=== PATIENT | male | born 1970 | race Two or more races ===

== ENCOUNTER 2018-03-16 10:25 | Emergency (ER) | payer MEDICAID ==
[~2018-03-16] VITALS: Ht 170.2 cm; Wt 90.7 kg
[2018-03-16] MEDS ORDERED: Tetanus/Diptheria/Pertussis Vaccine 0.5ml Syr IM ONE (11:00)
--- NOTE | 2018-03-16 11:52 | Diagnostic Imaging Report ---
Indication: Trauma Technique: Continuous helical CT scanning of the head was performed utilizing automated exposure control without intravenous contrast material. Axial and coronal reconstructions were obtained. Comparison: None CT dose: Total DLP 1998.38 mGycm; CTDI vol 70.38,28.19 mGy Findings: There is no acute intracranial hemorrhage, mass effect or cortical edema. The ventricles, cisterns and sulci are within normal limits for age. Visualized mastoid air cells are clear. There is mucosal thickening within the paranasal sinuses. There is frontal and left periorbital soft tissue swelling. There is no depressed calvarial fracture. IMPRESSION: No evidence of acute intracranial hemorrhage, mass effect or cortical edema. Until left periorbital soft tissue swelling. No depressed calvarial fracture. Mild paranasal sinus disease. The CT scanner at [facility] is accredited by the [employer] and the scans are performed using protocols designed to limit radiation exposure to as low as reasonably achievable to attain images of sufficient resolution adequate for diagnostic evaluation.
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
--- NOTE | 2018-03-16 12:00 | Diagnostic Imaging Report ---
Indication: Trauma Technique: CT maxillofacial was performed utilizing automated exposure control without intravenous contrast material. Axial and coronal images were generated. CT dose: Total DLP 1998.38 mGycm; CTDI vol 70.38,28.19 mGy Comparison: None Findings: Acute, minimally displaced fracture of the left nasal bone. Possible nondisplaced fracture of the right nasal bone. There is overlying soft tissue swelling. The nasal septum is midline. There is mild to moderate paranasal sinus disease with mucosal thickening involving ethmoid air cells and bilateral maxillary sinuses with a retention cyst versus polyp in the left maxillary sinus. The bony orbits are intact. Globes are symmetric. There is frontal and left periorbital soft tissue swelling. Conal fat of the bilateral orbits without evidence of infiltration. Extraocular muscles symmetric bilaterally. Visualized cervical spine grossly unremarkable. IMPRESSION: * Acute, mildly displaced fracture of the left nasal bone. Likely nondisplaced fracture of the right nasal bone. Overlying soft tissue swelling. * Frontal and left periorbital soft tissue swelling. * Paranasal sinus disease. The CT scanner at [facility] is accredited by the [employer] and the scans are performed using protocols designed to limit radiation exposure to as low as reasonably achievable to attain images of sufficient resolution adequate for diagnostic evaluation.
[2018-03-16] MEDS ORDERED: Lidocaine 1% MPF 10mg/ml 5ml INJ ONE (12:30)
[2018-03-16] MEDS ORDERED: CEPHALEXIN500 MG ORAL (13:02)
[2018-03-16] MEDS ORDERED: IBUPROFEN800 MG ORAL (13:02)
[2018-03-16 13:29] VITALS: BP 158/73
== END 2018-03-16 13:35 | disposition home or self-care (01) ==
LOC: EDBD 10:25 → EMR 10:58
DX: S01.81XA Laceration without foreign body of other part of head, initial encounter (principal); S00.83XA Contusion of other part of head, initial encounter; S00.12XA Contusion of left eyelid and periocular area, initial encounter; S00.33XA Contusion of nose, initial encounter; Y04.2XXA Assault by strike against or bumped into by another person, initial encounter; Y92.89 Other specified places as the place of occurrence of the external cause; Z23 Encounter for immunization; H11.31 Conjunctival hemorrhage, right eye; J45.909 Unspecified asthma, uncomplicated
CPT/HCPCS: 12011; 70450; 70486; 90471; 90715; 99284; Z7502

== ENCOUNTER 2018-03-23 18:31 | Emergency (ER) | payer MEDICAID ==
[~2018-03-23] VITALS: Ht 172.7 cm; Wt 90.7 kg
[~2018-03-23 18:31] MED LIST: CEPHALEXIN500 MG ORAL; IBUPROFEN800 MG ORAL
[2018-03-23 19:15] VITALS: BP 122/69
[2018-03-23] MEDS ORDERED: KENALOG 0.1% CR15 GM APPLIC (19:16)
[2018-03-23] MEDS ORDERED: PREDNISONE20 MG ORAL (19:16)
[2018-03-23] MEDS ORDERED: CEPHALEXIN500 MG ORAL (19:16)
[2018-03-23] MEDS ORDERED: ALBUTEROL SULF8.5 GM INH (19:33)
[2018-03-23 19:37] VITALS: BP 122/69
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
== END 2018-03-23 19:37 | disposition home or self-care (01) ==
LOC: EMR 19:13
DX: Z48.817 Encounter for surgical aftercare following surgery on the skin and subcutaneous tissue (principal)
CPT/HCPCS: 99282